=== PATIENT | female | born 2000 | race Caucasian/White ===

== ENCOUNTER 2021-01-17 10:09 | Emergency (ER) | payer SELFPAY ==
[2021-01-17] MEDS ORDERED: cefTRIAXone\\ROCEPHIN 1 GM VIAL ONE (11:14)
[2021-01-17] MEDS ORDERED: Lidocaine 1% (PF) 30 ML VIAL ONE (11:15)
[2021-01-19 17:16] LABS: Chlam.trachomatis by PCR,Urine DETECTED (NotDetected)
== END 2021-01-17 11:40 | disposition home or self-care (01) ==
LOC: CSHERS 10:09
DX: Z20.2 Contact with and (suspected) exposure to infections with a predominantly sexual mode of transmission (principal)
CPT/HCPCS: 87491; 87591; 96372; 99283; J0696; J2001

== ENCOUNTER 2021-01-27 19:48 | Emergency (ER) | payer OTHER, SELFPAY | END 2021-01-27 20:52 | disposition home or self-care (01) | LOC: CSHERS 19:48 | DX: M54.6 Pain in thoracic spine (principal); M25.512 Pain in left shoulder; V49.9XXA Car occupant (driver) (passenger) injured in unspecified traffic accident, initial encounter | CPT/HCPCS: 71045; 72072 ==

== ENCOUNTER 2022-03-16 09:37 | Emergency (ER) | payer SELFPAY ==
[2022-03-16] MEDS ORDERED: Ibuprofen 200 MG TAB ONE (11:07)
[2022-03-16 20:31] LABS: SARS-CoV-2 PCR by NAA Not Detected (NotDetected)
== END 2022-03-16 12:25 | disposition home or self-care (01) ==
LOC: CSHERS 09:37
DX: B34.9 Viral infection, unspecified (principal); Z20.822 Contact with and (suspected) exposure to COVID-19
CPT/HCPCS: 87804; 99283; U0003; U0005

== ENCOUNTER 2023-03-16 21:19 | Emergency (ER) | payer OTHER, SELFPAY | END 2023-03-16 22:21 | disposition left against medical advice (07) | LOC: CSHERS 21:19 | DX: Z53.21 Procedure and treatment not carried out due to patient leaving prior to being seen by health care provider (principal) ==